=== PATIENT | male | born 1985 | race African-American/Black ===

== ENCOUNTER 2018-04-05 02:35 | Emergency (ER) | payer OTHER | END 2018-04-05 05:45 | disposition home or self-care (01) | LOC: ERS 02:35 | DX: S29.012A Strain of muscle and tendon of back wall of thorax, initial encounter (principal); E86.0 Dehydration; I25.2 Old myocardial infarction; F31.9 Bipolar disorder, unspecified; F20.9 Schizophrenia, unspecified; F17.210 Nicotine dependence, cigarettes, uncomplicated; X58.XXXA Exposure to other specified factors, initial encounter | CPT/HCPCS: 99283 ==

== ENCOUNTER 2018-04-08 02:35 | Emergency (ER) | payer OTHER ==
[2018-04-08] MEDS ORDERED: Ondansetron ODT 4 MG TAB ONE (05:55)
[2018-04-08] MEDS ORDERED: Ketorolac Tromethamine 60 MG/2 ML VIAL ONE (05:55)
== END 2018-04-08 06:57 | disposition home or self-care (01) ==
LOC: ERS 02:35
DX: M54.9 Dorsalgia, unspecified (principal); R11.2 Nausea with vomiting, unspecified; I25.2 Old myocardial infarction; F31.9 Bipolar disorder, unspecified; F20.9 Schizophrenia, unspecified; F17.210 Nicotine dependence, cigarettes, uncomplicated
CPT/HCPCS: 96372; J1885; Q0162

== ENCOUNTER 2018-04-10 20:40 | Emergency (ER) | payer OTHER ==
[2018-04-10 21:18] LABS: #Basophils 0.1 thou/uL (0.0-0.2); #Eosinphils 0.2 thou/uL (0.0-0.7); #Lymphocytes 3.4 thou/uL (1.20-3.40); #Monocytes 0.7 thou/uL (0.11-0.59); %Basophils 0.8 % (0.0-1.0); %Lymphocytes 46.2 % (21.0-51.0); %Monocytes 8.9 % (0.0-10.0); %Neutrophils 41.1 % (42.0-75.0); Hemoglobin 15.6 g/dL (14.0-18.0); Mean Corpuscular HGB CONC 35.9 g/dL (32.0-36.0); Mean Corpuscular Hemoglobin 32.6 pg (27.0-31.0); Mean Corpuscular Volume 90.8 fl (80.0-94.0); Mean Platelet Volume 6.7 fL (7.4-10.4); Platelet Count 245 thou/uL (130-400); RBC Distribution Width 11.4 % (11.5-14.5); White Blood Cell (WBC) Count 7.3 thou/uL (4.8-10.8)
--- NOTE | 2018-04-10 21:24 | RAD ---
PORTABLE CHEST: 04/10/18 HISTORY: Chest pain. COMPARISON: 06/12/17. Lung dixon are clear. Heart and mediastinum appear normal. IMPRESSION: Unremarkable chest. POS: [facility]
[2018-04-10 21:38] LABS: ALT (SGPT) 14 U/L (8-55); AST (SGOT) 23 U/L (5-34); Albumin 4.2 g/dL (3.5-5.0); Alkaline Phosphatase 90 U/L (40-150); Anion Gap 13 mmol/L (10-20); BUN (Urea Nitrogen) 8 mg/dL (8.9-20.6); Bilirubin, Total 0.9 mg/dL (0.2-1.2); Calc. Creatinine Clearance 0 mL/min (70-130); Calcium 9.4 mg/dL (7.8-10.44); Carbon Dioxide 27 mmol/L (22-29); Chloride 104 mmol/L (98-107); Estimated GFR-MDRD 79; Globulin 2.5 g/dL (2.4-3.5); Glucose 82 mg/dL (70-105); Protein, Total 6.7 g/dL (6.0-8.3); Sodium 140 mmol/L (136-145)
[2018-04-10 21:42] LABS: CKMB 0.8 ng/mL (0-6.6); Troponin I Less than 0.010 ng/mL (< 0.028)
[2018-04-10 22:07] LABS: Medtox Reader # READER 1
[2018-04-10 22:11] LABS: Amphetamine Not Detected (NotDetected); Barbiturates Screen Not Detected (NotDetected); Benzodiazepine Screen Not Detected (NotDetected); Cocaine Metabolite Screen Detected (NotDetected); Medtox Control Line Valid? VALID (VALID); Methadone Not Detected (NotDetected); Methamphetamine Not Detected (NotDetected); Opiate Screen Not Detected (NotDetected); Oxycodone Screen Not Detected (NotDetected); Phencyclidine (PCP) Not Detected (NotDetected); THC/Cannabinoid Screen Not Detected (NotDetected); Tricyclic Screen Not Detected (NotDetected)
== END 2018-04-11 00:02 | disposition home or self-care (01) ==
LOC: ERS 20:40
DX: F14.288 Cocaine dependence with other cocaine-induced disorder (principal); R07.9 Chest pain, unspecified; I25.2 Old myocardial infarction; F31.9 Bipolar disorder, unspecified; F17.210 Nicotine dependence, cigarettes, uncomplicated
CPT/HCPCS: 36415; 71045; 80053; 80306; 82553; 84484; 85025; 93005

== ENCOUNTER 2018-04-12 01:37 | Emergency (ER) | payer OTHER ==
[2018-04-12 02:20] LABS: BHCG - Serum Negative; Pregs Control Background? CLEAR/WHITE (CLR/WHITE); Pregs Control Bar Appear? YES (CONTROL BAR)
[2018-04-12 02:41] LABS: ALT (SGPT) 16 U/L (8-55); AST (SGOT) 28 U/L (5-34); Albumin 3.7 g/dL (3.5-5.0); Alkaline Phosphatase 80 U/L (40-150); Anion Gap 12 mmol/L (10-20); BUN (Urea Nitrogen) 11 mg/dL (8.9-20.6); Bilirubin, Total 0.6 mg/dL (0.2-1.2); Calc. Creatinine Clearance 0 mL/min (70-130); Calcium 8.6 mg/dL (7.8-10.44); Carbon Dioxide 23 mmol/L (22-29); Chloride 106 mmol/L (98-107); Estimated GFR-MDRD Greater than 90; Globulin 2.4 g/dL (2.4-3.5); Glucose 88 mg/dL (70-105); Lipase 29 U/L (8-78); Potassium 3.8 mmol/L (3.5-5.1); Protein, Total 6.1 g/dL (6.0-8.3); Sodium 137 mmol/L (136-145)
[2018-04-12 02:45] LABS: Bilirubin Small (Negative); Blood, Urine Negative (Negative); Clarity CLEAR (Clear); Glucose, Urine (Dipstick) Negative (Negative); Leukocyte Negative (Negative); Nitrite Negative (Negative); Protein, Urine (Dipstick) Trace mg/dL (Neg-Trace); Specific Gravity, Urine 1.036 (1.002-1.036)
[2018-04-12 02:56] LABS: #Eosinphils 0.3 thou/uL (0.0-0.7); #Lymphocytes 2.9 thou/uL (1.20-3.40); #Monocytes 0.5 thou/uL (0.11-0.59); #Neutrophils 3.2 thou/uL (1.40-6.50); %Basophils 0.7 % (0.0-1.0); %Eosinophils 4.6 % (0.0-10.0); %Lymphocytes 41.5 % (21.0-51.0); %Monocytes 7.5 % (0.0-10.0); %Neutrophils 45.8 % (42.0-75.0); Hemoglobin 14.3 g/dL (14.0-18.0); Mean Corpuscular HGB CONC 35.9 g/dL (32.0-36.0); Mean Corpuscular Hemoglobin 32.5 pg (27.0-31.0); Mean Corpuscular Volume 90.6 fl (80.0-94.0); Mean Platelet Volume 6.9 fL (7.4-10.4); Platelet Count 217 thou/uL (130-400); RBC Distribution Width 11.4 % (11.5-14.5); Red Blood Cell (RBC) Count 4.39 mill/uL (4.70-6.10)
[2018-04-12] MEDS ORDERED: Ketorolac Tromethamine 60 MG/2 ML VIAL ONE (03:03)
== END 2018-04-12 03:45 | disposition home or self-care (01) ==
LOC: ERS 01:37
DX: R51 Headache (principal); I25.2 Old myocardial infarction; F17.210 Nicotine dependence, cigarettes, uncomplicated; F31.9 Bipolar disorder, unspecified; F20.9 Schizophrenia, unspecified
CPT/HCPCS: 36415; 80053; 81003; 83690; 84703; 85025; 87086; 96372; J1885

== ENCOUNTER 2018-04-19 00:21 | Emergency (ER) | payer OTHER | END 2018-04-19 01:40 | disposition home or self-care (01) | LOC: ERS 00:21 | DX: M79.1 Myalgia (principal); E86.0 Dehydration; I25.2 Old myocardial infarction; F17.210 Nicotine dependence, cigarettes, uncomplicated; F31.9 Bipolar disorder, unspecified; F20.9 Schizophrenia, unspecified | CPT/HCPCS: 99283 ==

== ENCOUNTER 2018-04-23 16:19 | Emergency (ER) | payer OTHER ==
[2018-04-23 17:46] LABS: Hemoglobin 16.4 g/dL (14.0-18.0); Mean Corpuscular HGB CONC 36.2 g/dL (32.0-36.0); Mean Corpuscular Hemoglobin 32.2 pg (27.0-31.0); Mean Platelet Volume 6.2 fL (7.4-10.4); Platelet Count 277 thou/uL (130-400); RBC Distribution Width 11.6 % (11.5-14.5); Red Blood Cell (RBC) Count 5.09 mill/uL (4.70-6.10); White Blood Cell (WBC) Count 5.7 thou/uL (4.8-10.8)
[2018-04-23 17:55] LABS: ALT (SGPT) 14 U/L (8-55); AST (SGOT) 26 U/L (5-34); Albumin 4.6 g/dL (3.5-5.0); Alkaline Phosphatase 98 U/L (40-150); Anion Gap 11 mmol/L (10-20); BUN (Urea Nitrogen) 11 mg/dL (8.9-20.6); Bilirubin, Total 0.7 mg/dL (0.2-1.2); Calc. Creatinine Clearance 0 mL/min (70-130); Calcium 9.6 mg/dL (7.8-10.44); Carbon Dioxide 27 mmol/L (22-29); Chloride 103 mmol/L (98-107); Estimated GFR-MDRD Greater than 90; Globulin 3.6 g/dL (2.4-3.5); Glucose 97 mg/dL (70-105); Potassium 4.4 mmol/L (3.5-5.1); Protein, Total 8.2 g/dL (6.0-8.3); Sodium 137 mmol/L (136-145)
[2018-04-23] MEDS ORDERED: Ondansetron ODT 4 MG TAB ONE (17:56)
[2018-04-23 18:08] LABS: Band 1 % (5-11); Eosinophils 2 % (0-10); Lymphocytes 24 % (21-51); MDiff Complete? YES; Monocytes 5 % (0-10); Neutrophil 60 % (42-75); PLT Morphology Comment Appears Adequate; Reactive Lymphocytes 7 % (0-10); Target Cells SLIGHT = 2-5 cells (100X) (0-1/hpf)
[2018-04-23 18:24] LABS: Bilirubin Small (Negative); Blood, Urine Negative (Negative); Clarity CLEAR (Clear); Glucose, Urine (Dipstick) Negative (Negative); Leukocyte Trace (Negative); Nitrite Negative (Negative); Protein, Urine (Dipstick) Negative (Neg-Trace); Specific Gravity, Urine 1.028 (1.002-1.036)
[2018-04-23 18:27] LABS: Bacteria/HPF None Seen HPF (None Seen); Hyaline Casts/LPF 0-3 HYALINE CAST LPF (0-3 Hyaline); RBC/HPF 0-3 HPF (0-3); Squamous Epithelial None Seen HPF (0-3); WBC/HPF None Seen HPF (0-3)
== END 2018-04-23 20:18 | disposition home or self-care (01) ==
LOC: ERS 16:19
DX: M79.1 Myalgia (principal); I25.2 Old myocardial infarction; F31.9 Bipolar disorder, unspecified; F20.9 Schizophrenia, unspecified; Z71.6 Tobacco abuse counseling; F17.210 Nicotine dependence, cigarettes, uncomplicated
CPT/HCPCS: 36415; 80053; 81003; 81015; 82550; 85025; 96360; 99406; Q0162

== ENCOUNTER 2018-04-28 22:43 | Emergency (ER) | payer OTHER ==
[2018-04-28 23:11] LABS: Bilirubin Small (Negative); Blood, Urine Negative (Negative); Clarity CLEAR (Clear); Glucose, Urine (Dipstick) Negative (Negative); Leukocyte Negative (Negative); Nitrite Negative (Negative); Protein, Urine (Dipstick) Negative (Neg-Trace); Specific Gravity, Urine 1.034 (1.002-1.036); pH, Urine 5.5 (5.0-9.0)
[2018-04-28 23:44] LABS: ALT (SGPT) 13 U/L (8-55); AST (SGOT) 23 U/L (5-34); Alkaline Phosphatase 87 U/L (40-150); Anion Gap 9 mmol/L (10-20); BUN (Urea Nitrogen) 10 mg/dL (8.9-20.6); Bilirubin, Total 0.5 mg/dL (0.2-1.2); Calc. Creatinine Clearance 0 mL/min (70-130); Calcium 9.1 mg/dL (7.8-10.44); Carbon Dioxide 26 mmol/L (22-29); Chloride 108 mmol/L (98-107); Estimated GFR-MDRD Greater than 90; Glucose 93 mg/dL (70-105); Potassium 4.1 mmol/L (3.5-5.1); Sodium 139 mmol/L (136-145)
[2018-04-28 23:50] LABS: Eosinophils 6 % (0-10); Hemoglobin 15.9 g/dL (14.0-18.0); Lymphocytes 42 % (21-51); MDiff Complete? YES; Mean Corpuscular HGB CONC 35.2 g/dL (32.0-36.0); Mean Corpuscular Hemoglobin 32.1 pg (27.0-31.0); Mean Corpuscular Volume 91.1 fL (78.0-98.0); Mean Platelet Volume 6.7 fL (7.4-10.4); Monocytes 10 % (0-10); Neutrophil 42 % (42-75); PLT Morphology Comment Appears Adequate; Platelet Count 241 thou/uL (130-400); RBC Distribution Width 11.7 % (11.5-14.5); Red Blood Cell (RBC) Count 4.96 mill/uL (4.70-6.10); White Blood Cell (WBC) Count 6.3 thou/uL (4.8-10.8)
[2018-04-29 02:13] LABS: Acetaminophen Less than 6.0 mcg/mL (10.0-30.0); Alcohol Less than 10 mg/dL (Less than 10); Salicylate Less than 8.0 mg/dL (15.0-30.0)
[2018-04-29 02:34] LABS: Amphetamine Not Detected (NotDetected); Barbiturates Screen Not Detected (NotDetected); Benzodiazepine Screen Not Detected (NotDetected); Cocaine Metabolite Screen Detected (NotDetected); Medtox Control Line Valid? VALID (VALID); Medtox Reader # READER 1; Methadone Not Detected (NotDetected); Methamphetamine Not Detected (NotDetected); Opiate Screen Not Detected (NotDetected); Oxycodone Screen Not Detected (NotDetected); Phencyclidine (PCP) Not Detected (NotDetected); THC/Cannabinoid Screen Not Detected (NotDetected); Tricyclic Screen Not Detected (NotDetected)
== END 2018-04-28 23:59 | disposition home or self-care (01) ==
LOC: ERS 22:43
DX: F23 Brief psychotic disorder (principal); F31.9 Bipolar disorder, unspecified; F17.210 Nicotine dependence, cigarettes, uncomplicated; I10 Essential (primary) hypertension; I25.2 Old myocardial infarction; Z71.6 Tobacco abuse counseling
CPT/HCPCS: 36415; 80053; 80306; 80307; 81003; 83690; 85025; 99406

== ENCOUNTER 2018-04-29 21:27 | Emergency (ER) | payer OTHER | END 2018-04-29 21:55 | disposition home or self-care (01) | LOC: ERS 21:27 | DX: M79.1 Myalgia (principal); F31.9 Bipolar disorder, unspecified; F20.9 Schizophrenia, unspecified; F17.210 Nicotine dependence, cigarettes, uncomplicated | CPT/HCPCS: 99283 ==

== ENCOUNTER 2018-05-06 02:58 | Emergency (ER) | payer OTHER ==
[2018-05-06] MEDS ORDERED: Metoclopramide HCl 10 MG/2 ML VIAL ONE (03:56)
[2018-05-06] MEDS ORDERED: Ketorolac Tromethamine 30 MG/ML VIAL ONE (03:56)
== END 2018-05-06 05:14 | disposition home or self-care (01) ==
LOC: ERS 02:58
DX: R51 Headache (principal); F17.210 Nicotine dependence, cigarettes, uncomplicated; F31.9 Bipolar disorder, unspecified; F20.9 Schizophrenia, unspecified
CPT/HCPCS: 96361; 96374; 96375; J1885; J2765

== ENCOUNTER 2018-05-09 02:34 | Emergency (ER) | payer OTHER | END 2018-05-09 03:19 | disposition home or self-care (01) | LOC: ERS 02:34 | DX: G44.209 Tension-type headache, unspecified, not intractable (principal); I10 Essential (primary) hypertension; F41.9 Anxiety disorder, unspecified; F31.9 Bipolar disorder, unspecified | CPT/HCPCS: 99281 ==

== ENCOUNTER 2018-05-11 22:00 | Emergency (ER) | payer OTHER ==
[2018-05-12] MEDS ORDERED: Ketorolac Tromethamine 60 MG/2 ML VIAL ONE (00:18)
== END 2018-05-12 00:50 | disposition home or self-care (01) ==
LOC: ERS 22:00
DX: R51 Headache (principal); I10 Essential (primary) hypertension; F31.9 Bipolar disorder, unspecified; F41.9 Anxiety disorder, unspecified; F17.210 Nicotine dependence, cigarettes, uncomplicated
CPT/HCPCS: 96372; J1885

== ENCOUNTER 2018-05-28 03:04 | Emergency (ER) | payer OTHER | END 2018-05-28 04:53 | disposition home or self-care (01) | LOC: ERS 03:04 | DX: G43.909 Migraine, unspecified, not intractable, without status migrainosus (principal); F31.9 Bipolar disorder, unspecified; F41.9 Anxiety disorder, unspecified; F17.210 Nicotine dependence, cigarettes, uncomplicated; I10 Essential (primary) hypertension | CPT/HCPCS: 99283 ==

== ENCOUNTER 2018-06-01 03:13 | Emergency (ER) | payer OTHER | END 2018-06-01 03:48 | disposition home or self-care (01) | LOC: ERS 03:13 | DX: Z00.00 Encounter for general adult medical examination without abnormal findings (principal) | CPT/HCPCS: 99283 ==

== ENCOUNTER 2018-06-09 04:53 | Emergency (ER) | payer OTHER ==
[2018-06-09] MEDS ORDERED: diphenhydrAMINE 25 MG CAP ONE (05:29)
[2018-06-09] MEDS ORDERED: Haloperidol Lactate 5 MG/ML VIAL ONE (05:29)
== END 2018-06-09 06:15 | disposition home or self-care (01) ==
LOC: ERS 04:53
DX: R51 Headache (principal); R10.9 Unspecified abdominal pain; I10 Essential (primary) hypertension; F31.9 Bipolar disorder, unspecified; F17.210 Nicotine dependence, cigarettes, uncomplicated; F41.9 Anxiety disorder, unspecified
CPT/HCPCS: 96372; J1630

== ENCOUNTER 2019-03-29 17:12 | Emergency (ER) | payer OTHER | END 2019-03-29 17:58 | disposition home or self-care (01) | LOC: ERS 17:12 | DX: T67.5XXA Heat exhaustion, unspecified, initial encounter (principal); R11.2 Nausea with vomiting, unspecified; I10 Essential (primary) hypertension; F41.9 Anxiety disorder, unspecified; F31.9 Bipolar disorder, unspecified; F17.210 Nicotine dependence, cigarettes, uncomplicated | CPT/HCPCS: 99284 ==

== ENCOUNTER 2019-04-01 04:06 | Emergency (ER) | payer OTHER | END 2019-04-01 04:35 | disposition home or self-care (01) | LOC: ERS 04:06 | DX: M54.5 Low back pain (principal); F41.9 Anxiety disorder, unspecified; F31.9 Bipolar disorder, unspecified; F17.210 Nicotine dependence, cigarettes, uncomplicated | CPT/HCPCS: 93005 ==

== ENCOUNTER 2019-04-02 00:45 | Emergency (ER) | payer OTHER ==
[2019-04-02 02:38] LABS: #Basophils 0.1 thou/uL (0.0-0.2); #Eosinphils 0.4 thou/uL (0.0-0.7); #Lymphocytes 2.4 thou/uL (1.20-3.40); #Monocytes 0.8 thou/uL (0.11-0.59); #Neutrophils 3.2 thou/uL (1.40-6.50); %Eosinophils 5.1 % (0.0-10.0); %Lymphocytes 35.2 % (21.0-51.0); %Monocytes 11.3 % (0.0-10.0); %Neutrophils 46.4 % (42.0-75.0); Hemoglobin 14.8 g/dL (14.0-18.0); Mean Corpuscular HGB CONC 35.4 g/dL (32.0-36.0); Mean Corpuscular Hemoglobin 31.6 pg (27.0-31.0); Mean Corpuscular Volume 89.2 fL (78.0-98.0); Mean Platelet Volume 6.2 fL (7.4-10.4); Platelet Count 248 thou/uL (130-400); RBC Distribution Width 11.7 % (11.5-14.5); White Blood Cell (WBC) Count 6.9 thou/uL (4.8-10.8)
[2019-04-02 02:56] LABS: ALT (SGPT) 14 U/L (8-55); AST (SGOT) 26 U/L (5-34); Albumin 4.1 g/dL (3.5-5.0); Alkaline Phosphatase 65 U/L (40-150); Anion Gap 11 mmol/L (10-20); BUN (Urea Nitrogen) 12 mg/dL (8.9-20.6); Bilirubin, Total 0.4 mg/dL (0.2-1.2); CK (CPK) 658 U/L (30-200); Calc. Creatinine Clearance 0 mL/min (70-130); Calcium 9.3 mg/dL (7.8-10.44); Carbon Dioxide 27 mmol/L (22-29); Chloride 103 mmol/L (98-107); Estimated GFR-MDRD Greater than 90; Globulin 2.7 g/dL (2.4-3.5); Glucose 75 mg/dL (70-105); Potassium 4.5 mmol/L (3.5-5.1); Protein, Total 6.8 g/dL (6.0-8.3); Sodium 136 mmol/L (136-145)
[2019-04-02 03:07] LABS: Bilirubin Negative (Negative); Blood, Urine Negative (Negative); Clarity CLEAR (Clear); Glucose, Urine (Dipstick) Negative (Negative); Leukocyte Negative (Negative); Nitrite Negative (Negative); Protein, Urine (Dipstick) Negative (Neg-Trace); Specific Gravity, Urine 1.023 (1.002-1.036); pH, Urine 5.5 (5.0-9.0)
== END 2019-04-02 03:32 | disposition home or self-care (01) ==
LOC: ERS 00:45
DX: E86.0 Dehydration (principal); F41.9 Anxiety disorder, unspecified; F31.9 Bipolar disorder, unspecified; F17.210 Nicotine dependence, cigarettes, uncomplicated
CPT/HCPCS: 36415; 80053; 81003; 82550; 85025; 99283

== ENCOUNTER 2019-04-05 04:49 | Emergency (ER) | payer OTHER | END 2019-04-05 05:30 | disposition home or self-care (01) | LOC: ERS 04:49 | DX: Z76.5 Malingerer [conscious simulation] (principal); I10 Essential (primary) hypertension; F17.210 Nicotine dependence, cigarettes, uncomplicated | CPT/HCPCS: 99281 ==

== ENCOUNTER 2019-04-14 23:37 | Emergency (ER) | payer OTHER | END 2019-04-15 01:28 | disposition home or self-care (01) | LOC: ERS 23:37 | DX: M54.5 Low back pain (principal); I10 Essential (primary) hypertension; F41.9 Anxiety disorder, unspecified; F31.9 Bipolar disorder, unspecified; F17.210 Nicotine dependence, cigarettes, uncomplicated | CPT/HCPCS: 99281 ==

== ENCOUNTER 2019-04-24 17:49 | Emergency (ER) | payer OTHER ==
[2019-04-24 18:36] LABS: #Basophils 0.1 thou/uL (0.0-0.2); #Eosinphils 0.5 thou/uL (0.0-0.7); #Lymphocytes 2.9 thou/uL (1.20-3.40); #Monocytes 0.8 thou/uL (0.11-0.59); #Neutrophils 4.1 thou/uL (1.40-6.50); %Basophils 1.5 % (0.0-1.0); %Eosinophils 5.6 % (0.0-10.0); %Lymphocytes 34.9 % (21.0-51.0); %Neutrophils 49.1 % (42.0-75.0); Hemoglobin 15.1 g/dL (14.0-18.0); Mean Corpuscular HGB CONC 35.5 g/dL (32.0-36.0); Mean Corpuscular Hemoglobin 31.3 pg (27.0-31.0); Mean Corpuscular Volume 88.1 fL (78.0-98.0); Mean Platelet Volume 6.4 fL (7.4-10.4); Platelet Count 274 thou/uL (130-400); RBC Distribution Width 11.8 % (11.5-14.5); Red Blood Cell (RBC) Count 4.83 mill/uL (4.70-6.10); White Blood Cell (WBC) Count 8.4 thou/uL (4.8-10.8)
[2019-04-24 18:54] LABS: ALT (SGPT) 16 U/L (8-55); AST (SGOT) 28 U/L (5-34); Albumin 4.3 g/dL (3.5-5.0); Alkaline Phosphatase 86 U/L (40-150); Anion Gap 14 mmol/L (10-20); BUN (Urea Nitrogen) 14 mg/dL (8.9-20.6); Bilirubin, Total 0.4 mg/dL (0.2-1.2); CK (CPK) 731 U/L (30-200); Calc. Creatinine Clearance 0 mL/min (70-130); Calcium 9.1 mg/dL (7.8-10.44); Carbon Dioxide 24 mmol/L (22-29); Chloride 101 mmol/L (98-107); Estimated GFR-MDRD 64; Globulin 3.1 g/dL (2.4-3.5); Glucose 97 mg/dL (70-105); Potassium 4.1 mmol/L (3.5-5.1); Protein, Total 7.4 g/dL (6.0-8.3); Sodium 135 mmol/L (136-145)
[2019-04-24 19:32] LABS: Bilirubin Negative (Negative); Blood, Urine Negative (Negative); Clarity CLEAR (Clear); Glucose, Urine (Dipstick) Negative (Negative); Leukocyte Negative (Negative); Nitrite Negative (Negative); Protein, Urine (Dipstick) Negative (Neg-Trace)
[2019-04-24 19:58] LABS: Acetaminophen Less than 6.0 mcg/mL (10.0-30.0); Alcohol Less than 10 mg/dL (Less than 10); Salicylate Less than 8.0 mg/dL (15.0-30.0)
[2019-04-24 21:59] LABS: Amphetamine Not Detected (NotDetected); Barbiturates Screen Not Detected (NotDetected); Benzodiazepine Screen Not Detected (NotDetected); Cocaine Metabolite Screen Not Detected (NotDetected); Medtox Control Line Valid? VALID (VALID); Medtox Reader # READER 1; Methadone Not Detected (NotDetected); Methamphetamine Not Detected (NotDetected); Opiate Screen Not Detected (NotDetected); Oxycodone Screen Not Detected (NotDetected); Phencyclidine (PCP) Not Detected (NotDetected); THC/Cannabinoid Screen Not Detected (NotDetected); Tricyclic Screen Not Detected (NotDetected)
== END 2019-04-24 23:49 | disposition home or self-care (01) ==
LOC: ERS 17:49
DX: F20.9 Schizophrenia, unspecified (principal); E86.0 Dehydration; I10 Essential (primary) hypertension; F41.9 Anxiety disorder, unspecified; F31.9 Bipolar disorder, unspecified; F17.210 Nicotine dependence, cigarettes, uncomplicated
CPT/HCPCS: 80053; 80306; 80307; 81003; 82550; 84443; 85025; 93005; 94760; 96360

== ENCOUNTER 2019-11-20 03:28 | Emergency (ER) | payer OTHER | END 2019-11-20 03:50 | disposition home or self-care (01) | LOC: ERS 03:28 | DX: R11.10 Vomiting, unspecified (principal); I10 Essential (primary) hypertension; F31.9 Bipolar disorder, unspecified; F17.210 Nicotine dependence, cigarettes, uncomplicated | CPT/HCPCS: 99283 ==

== ENCOUNTER 2019-11-22 06:42 | Emergency (ER) | payer OTHER | END 2019-11-22 09:02 | disposition home or self-care (01) | LOC: ERS 06:42 | DX: R10.9 Unspecified abdominal pain (principal); F41.9 Anxiety disorder, unspecified; F32.9 Major depressive disorder, single episode, unspecified; I10 Essential (primary) hypertension; F17.210 Nicotine dependence, cigarettes, uncomplicated | CPT/HCPCS: 93005 ==

== ENCOUNTER 2019-11-24 04:17 | Emergency (ER) | payer OTHER | END 2019-11-24 04:35 | disposition home or self-care (01) | LOC: ERS 04:17 | DX: M54.9 Dorsalgia, unspecified (principal); G89.29 Other chronic pain; I10 Essential (primary) hypertension; F31.9 Bipolar disorder, unspecified; F20.9 Schizophrenia, unspecified; F17.210 Nicotine dependence, cigarettes, uncomplicated; Z71.6 Tobacco abuse counseling | CPT/HCPCS: 99406 ==

== ENCOUNTER 2019-12-10 04:27 | Emergency (ER) | payer OTHER ==
[2019-12-10] MEDS ORDERED: Ondansetron ODT 8 MG TAB ONE (04:52)
== END 2019-12-10 04:56 | disposition home or self-care (01) ==
LOC: ERS 04:27
DX: R11.2 Nausea with vomiting, unspecified (principal); I10 Essential (primary) hypertension; F31.9 Bipolar disorder, unspecified; F20.9 Schizophrenia, unspecified; F17.210 Nicotine dependence, cigarettes, uncomplicated
CPT/HCPCS: 99283

== ENCOUNTER 2019-12-12 01:47 | Emergency (ER) | payer OTHER | END 2019-12-12 02:00 | disposition home or self-care (01) | LOC: ERS 01:47 | DX: R11.0 Nausea (principal); I10 Essential (primary) hypertension; F31.9 Bipolar disorder, unspecified; F20.9 Schizophrenia, unspecified; F17.210 Nicotine dependence, cigarettes, uncomplicated | CPT/HCPCS: 99281 ==

== ENCOUNTER 2020-04-30 16:29 | Emergency (ER) | payer OTHER ==
[2020-05-01 12:09] LABS: SARS-CoV-2 MS2 Positive; SARS-CoV-2 N Gene Negative; SARS-CoV-2 S Gene Negative; SARS-CoV-2 orf1ab Negative
== END 2020-04-30 16:47 | disposition home or self-care (01) ==
LOC: ERS 16:29
DX: R50.9 Fever, unspecified (principal); R11.2 Nausea with vomiting, unspecified; I10 Essential (primary) hypertension; F31.9 Bipolar disorder, unspecified; F20.9 Schizophrenia, unspecified; F17.210 Nicotine dependence, cigarettes, uncomplicated; Z20.828 Contact with and (suspected) exposure to other viral communicable diseases
CPT/HCPCS: 87635; U0003

== ENCOUNTER 2020-10-14 01:04 | Emergency (ER) | payer OTHER | END 2020-10-14 01:26 | disposition home or self-care (01) | LOC: ERS 01:04 | DX: M54.5 Low back pain (principal); I10 Essential (primary) hypertension; F17.210 Nicotine dependence, cigarettes, uncomplicated | CPT/HCPCS: 99281 ==

== ENCOUNTER 2020-10-27 06:27 | Emergency (ER) | payer OTHER ==
[2020-10-27] MEDS ORDERED: Ondansetron ODT 4 MG TAB ONE (06:40)
== END 2020-10-27 07:25 | disposition home or self-care (01) ==
LOC: ERS 06:27
DX: T68.XXXA Hypothermia, initial encounter (principal); R11.2 Nausea with vomiting, unspecified; I10 Essential (primary) hypertension; F17.210 Nicotine dependence, cigarettes, uncomplicated
CPT/HCPCS: 99283; Q0162

== ENCOUNTER 2020-12-08 19:04 | Emergency (ER) | payer OTHER ==
[2020-12-08] MEDS ORDERED: hydrOXYzine 25 MG TAB ONE (19:35)
== END 2020-12-09 00:23 | disposition home or self-care (01) ==
LOC: ERS 19:04
DX: F10.129 Alcohol abuse with intoxication, unspecified (principal); L29.9 Pruritus, unspecified; I10 Essential (primary) hypertension; F17.210 Nicotine dependence, cigarettes, uncomplicated
CPT/HCPCS: 99281

== ENCOUNTER 2020-12-11 21:42 | Emergency (ER) | payer OTHER | END 2020-12-11 23:38 | disposition home or self-care (01) | LOC: ERS 21:42 | DX: M54.9 Dorsalgia, unspecified (principal); I10 Essential (primary) hypertension; F17.210 Nicotine dependence, cigarettes, uncomplicated | CPT/HCPCS: 99281 ==

== ENCOUNTER 2020-12-30 18:20 | Inpatient (IN) | payer OTHER ==
[2020-12-30] MEDS ORDERED: Lorazepam 2 MG/ML VIAL ONE (18:31)
[2020-12-30 19:02] LABS: Bilirubin Negative (Negative); Blood, Urine Negative (Negative); Clarity Clear (Clear); Glucose, Urine (Dipstick) Normal (Negative); Ketone, Urine Negative (Negative); Leukocyte Negative Leu/uL (Negative); Nitrite Negative (Negative); Protein, Urine (Dipstick) Negative (Neg-Trace); Specific Gravity, Urine 1.007 (1.002-1.036); Urobilinogen Normal mg/dL (Less than 2); pH, Urine 5.5 (5.0-9.0)
[2020-12-30 19:05] LABS: #Basophils 0.1 thou/uL (0.0-0.2); #Eosinphils 0.2 thou/uL (0.0-0.7); #Monocytes 0.7 thou/uL (0.11-0.59); #Neutrophils 4.1 thou/uL (1.40-6.50); %Basophils 1.1 % (0.0-1.0); %Eosinophils 2.8 % (0.0-10.0); %Lymphocytes 37.5 % (21.0-51.0); %Monocytes 8.2 % (0.0-10.0); %Neutrophils 50.5 % (42.0-75.0); Hemoglobin 14.1 g/dL (14.0-18.0); Mean Corpuscular HGB CONC 35.5 g/dL (32.0-36.0); Mean Corpuscular Hemoglobin 31.6 pg (27.0-31.0); Mean Corpuscular Volume 88.9 fL (78.0-98.0); Platelet Count 454 thou/uL (130-400); RBC Distribution Width 12.1 % (11.5-14.5); Red Blood Cell (RBC) Count 4.45 mill/uL (4.70-6.10); White Blood Cell (WBC) Count 8.1 thou/uL (4.8-10.8)
[2020-12-30 19:13] LABS: Amphetamine Not Detected (NotDetected); Barbiturates Screen Not Detected (NotDetected); Benzodiazepine Screen Not Detected (NotDetected); Cocaine Metabolite Screen Not Detected (NotDetected); Medtox Control Line Valid? VALID (VALID); Medtox Reader # READER 4; Methadone Not Detected (NotDetected); Methamphetamine Not Detected (NotDetected); Opiate Screen Not Detected (NotDetected); Oxycodone Screen Not Detected (NotDetected); Phencyclidine (PCP) Not Detected (NotDetected); THC/Cannabinoid Screen Not Detected (NotDetected); Tricyclic Screen Not Detected (NotDetected)
[2020-12-30 19:28] LABS: ALT (SGPT) 14 U/L (8-55); AST (SGOT) 22 U/L (5-34); Acetaminophen Less than 6.0 mcg/mL (10.0-30.0); Albumin 3.8 g/dL (3.5-5.0); Alcohol 260 mg/dL (Less than 10); Alkaline Phosphatase 82 U/L (40-110); Anion Gap 17 mmol/L (10-20); BUN (Urea Nitrogen) 11 mg/dL (8.9-20.6); Bilirubin, Total 0.2 mg/dL (0.2-1.2); CK (CPK) 296 U/L (30-200); Calc. Creatinine Clearance 0 mL/min (70-130); Calcium 8.9 mg/dL (7.8-10.44); Carbon Dioxide 23 mmol/L (22-29); Chloride 105 mmol/L (98-107); Globulin 3.5 g/dL (2.4-3.5); Glucose 98 mg/dL (70-105); Potassium 3.8 mmol/L (3.5-5.1); Protein, Total 7.3 g/dL (6.0-8.3); Salicylate Less than 8.0 mg/dL (15.0-30.0); Sodium 141 mmol/L (136-145)
[2020-12-30] MEDS ORDERED: Lorazepam 2 MG/ML VIAL SLOW IVP PRN (20:35)
[2020-12-30] MEDS: Sodium Chloride 0.9% 1,000 ML IV SCH (21:20)
[2020-12-30 21:45] VITALS: BMI 24.3
[2020-12-30] MEDS: Piperacillin/Tazobactam 4.5 GM in Sodium Chloride 0.9% 100 ML IVPB SCH (23:24)
[2020-12-31 02:23] LABS: SARS-CoV-2 PCR by NAA Not Detected (NotDetected)
[2020-12-31] MEDS: Sodium Chloride 0.9% 1,000 ML IV SCH (02:32)
[2020-12-31 06:14] LABS: #Basophils 0.1 thou/uL (0.0-0.2); #Eosinphils 0.3 thou/uL (0.0-0.7); #Lymphocytes 1.7 thou/uL (1.20-3.40); #Monocytes 0.3 thou/uL (0.11-0.59); %Eosinophils 5.9 % (0.0-10.0); %Lymphocytes 31.7 % (21.0-51.0); %Monocytes 6.2 % (0.0-10.0); %Neutrophils 55.2 % (42.0-75.0); Hemoglobin 14.7 g/dL (14.0-18.0); Mean Corpuscular HGB CONC 35.6 g/dL (32.0-36.0); Mean Corpuscular Hemoglobin 31.7 pg (27.0-31.0); Mean Platelet Volume 5.9 fL (7.4-10.4); Platelet Count 448 thou/uL (130-400); RBC Distribution Width 12.2 % (11.5-14.5); Red Blood Cell (RBC) Count 4.65 mill/uL (4.70-6.10); White Blood Cell (WBC) Count 5.4 thou/uL (4.8-10.8)
[2020-12-31 06:34] LABS: Anion Gap 15 mmol/L (10-20); BUN (Urea Nitrogen) 11 mg/dL (8.9-20.6); Calc. Creatinine Clearance 127 mL/min (70-130); Calcium 8.8 mg/dL (7.8-10.44); Carbon Dioxide 24 mmol/L (22-29); Chloride 106 mmol/L (98-107); Glucose 63 mg/dL (70-105); Potassium 4.2 mmol/L (3.5-5.1); Sodium 141 mmol/L (136-145)
[2020-12-31] MEDS: Piperacillin/Tazobactam 4.5 GM in Sodium Chloride 0.9% 100 ML IVPB SCH (08:14)
[2020-12-31] MEDS ORDERED: FLU VACC QS2020-21(6MOS UP)/PF 60 MCG/0.5 ML SYRINGE IM ONE (09:00)
[2020-12-31] MEDS ORDERED: Lorazepam 2 MG/ML VIAL SLOW IVP PRN (11:32)
[2020-12-31] MEDS: Multivitamins, Adult 10 ML, Folic Acid 1 MG, Thiamine HCl 100 MG in Dextrose 5 %-0.45 %... IV SCH (12:48)
[2021-01-01] MEDS: Piperacillin/Tazobactam 3.375 GM in Sodium Chloride 0.9% 100 ML IVPB SCH ×2 (12:30→19:01)
[2021-01-01] MEDS: Multivitamins, Adult 10 ML, Folic Acid 1 MG, Thiamine HCl 100 MG in Dextrose 5 %-0.45 %... IV SCH (15:39)
[2021-01-02] MEDS: Piperacillin/Tazobactam 3.375 GM in Sodium Chloride 0.9% 100 ML IVPB SCH ×3 (00:12→13:57)
[2021-01-02] MEDS: Multivitamins, Adult 10 ML, Folic Acid 1 MG, Thiamine HCl 100 MG in Dextrose 5 %-0.45 %... IV SCH (13:57)
[2021-01-02 15:47] VITALS: BP 125/80; TEMP 98.2
== END 2021-01-02 13:53 | disposition home or self-care (01) | DRG 923 ==
LOC: ERS 18:20 → T4-B 19:41
PROVIDERS: ADMIT Student in an Organized Health Care Education/Training Program; ATTEND Internal Medicine
DX: T33.532A Superficial frostbite of left finger(s), initial encounter (principal); E46 Unspecified protein-calorie malnutrition; I96 Gangrene, not elsewhere classified; F20.9 Schizophrenia, unspecified; T33.531A Superficial frostbite of right finger(s), initial encounter; F10.129 Alcohol abuse with intoxication, unspecified; F31.9 Bipolar disorder, unspecified; F17.210 Nicotine dependence, cigarettes, uncomplicated; I11.0 Hypertensive heart disease with heart failure; I50.9 Heart failure, unspecified; E86.0 Dehydration; Z59.0 Homelessness; L89.892 Pressure ulcer of other site, stage 2; G31.2 Degeneration of nervous system due to alcohol; Z68.24 Body mass index [BMI] 24.0-24.9, adult
CPT/HCPCS: 36415; 80048; 80053; 80306; 80307; 81003; 82550; 83605; 85025; 87635; 90471; 90662; 90732; 96372; 99285; G0008; G0009; J2060; J2543; J3411; J3490; J7042; U0003; U0005

== ENCOUNTER 2021-01-04 05:48 | Emergency (ER) | payer OTHER | END 2021-01-04 06:30 | disposition home or self-care (01) | LOC: ERS 05:48 | DX: T33.531A Superficial frostbite of right finger(s), initial encounter (principal); T33.532A Superficial frostbite of left finger(s), initial encounter; I11.0 Hypertensive heart disease with heart failure; I50.9 Heart failure, unspecified; F17.210 Nicotine dependence, cigarettes, uncomplicated; X31.XXXA Exposure to excessive natural cold, initial encounter | CPT/HCPCS: 99283 ==

== ENCOUNTER 2021-02-09 21:54 | Emergency (ER) | payer OTHER | END 2021-02-09 22:45 | disposition home or self-care (01) | LOC: ERS 21:54 | DX: T34.532 Frostbite with tissue necrosis of left finger(s) (principal); T34.531D Frostbite with tissue necrosis of right finger(s), subsequent encounter; F17.210 Nicotine dependence, cigarettes, uncomplicated; I11.0 Hypertensive heart disease with heart failure; I50.9 Heart failure, unspecified; X31.XXXD Exposure to excessive natural cold, subsequent encounter | CPT/HCPCS: 99281 ==

== ENCOUNTER 2021-11-20 19:31 | Emergency (ER) | payer OTHER | END 2021-11-20 20:15 | disposition home or self-care (01) | LOC: ERS 19:31 | DX: F10.10 Alcohol abuse, uncomplicated (principal); I11.0 Hypertensive heart disease with heart failure; I50.9 Heart failure, unspecified; F17.210 Nicotine dependence, cigarettes, uncomplicated | CPT/HCPCS: 99284 ==

== ENCOUNTER 2022-07-03 22:34 | Emergency (ER) | payer OTHER | END 2022-07-03 23:26 | LOC: ERS 22:34 | DX: F19.90 Other psychoactive substance use, unspecified, uncomplicated (principal); F17.210 Nicotine dependence, cigarettes, uncomplicated; I10 Essential (primary) hypertension | CPT/HCPCS: 36416; 99283 ==

== ENCOUNTER 2022-09-14 19:05 | Emergency (ER) | payer OTHER ==
[2022-09-14] MEDS ORDERED: Ondansetron ODT 4 MG TAB ONE (19:50)
== END 2022-09-14 20:04 ==
LOC: ERS 19:05
DX: R11.2 Nausea with vomiting, unspecified (principal); I10 Essential (primary) hypertension; F17.210 Nicotine dependence, cigarettes, uncomplicated
CPT/HCPCS: 99284; Q0162

== ENCOUNTER 2023-11-09 18:08 | Emergency (ER) | payer OTHER ==
[2023-11-09 19:14] LABS: #Basophils 0.1 thou/uL (0.0-0.2); #Eosinphils 0.1 thou/uL (0.0-0.7); #Monocytes 0.5 thou/uL (0.11-0.59); #Neutrophils 2.6 thou/uL (1.40-6.50); %Basophils 1.2 % (0.0-1.0); %Eosinophils 1.8 % (0.0-10.0); %Monocytes 9.3 % (0.0-10.0); %Neutrophils 51.5 % (42.0-75.0); Hematocrit 43.3 % (42.0-52.0); Hemoglobin 16.1 g/dL (14.0-18.0); Mean Corpuscular HGB CONC 37.2 g/dL (32.0-36.0); Mean Corpuscular Volume 80.6 fl (78.0-98.0); Platelet Count 320 10x3/uL (130-400); RBC Distribution Width 12.6 % (11.5-14.5); Red Blood Cell (RBC) Count 5.37 mill/uL (4.70-6.10)
[2023-11-09 19:39] LABS: ALT (SGPT) 16 U/L (8-55); AST (SGOT) 21 U/L (5-34); Albumin 4.4 g/dL (3.5-5.0); Alkaline Phosphatase 77 U/L (40-110); Anion Gap 13 mmol/L (10-20); BUN (Urea Nitrogen) 14 mg/dL (8.9-20.6); Bilirubin, Total 0.5 mg/dL (0.2-1.2); Calc. Creatinine Clearance 0 mL/min (70-130); Calcium 9.5 mg/dL (7.8-10.44); Carbon Dioxide 24 mmol/L (22-29); Chloride 104 mmol/L (98-107); Estimated GFR 95; Globulin 3.2 g/dL (2.4-3.5); Glucose 81 mg/dL (70-105); Potassium 4.1 mmol/L (3.5-5.1); Protein, Total 7.6 g/dL (6.0-8.3); Sodium 137 mmol/L (136-145)
[2023-11-09 19:40] LABS: Acetaminophen Less than 10 mcg/mL (10.0-30.0); Alcohol Less than 10.0 mg/dL (Less than 10); Lipase 40 U/L (8-78); Salicylate Less than 8.0 mg/dL (15.0-30.0)
[2023-11-09 20:57] LABS: Bacteria/HPF None Seen HPF (None Seen); Bilirubin Negative (Negative); Blood, Urine Negative (Negative); CAUTI Indications for Culture Pelvic or flank pain; Clarity Clear (Clear); Glucose, Urine (Dipstick) Normal (Negative); Ketone, Urine Negative (Negative); Leukocyte Negative Leu/uL (Negative); Nitrite Negative (Negative); Protein, Urine (Dipstick) Negative (Neg-Trace); RBC/HPF None Seen HPF (0-3); Specific Gravity, Urine 1.009 (1.002-1.036); Squamous Epithelial None Seen HPF (0-3); Urobilinogen Normal mg/dL (Less than 2); WBC/HPF None Seen HPF (0-3)
[2023-11-09 21:00] LABS: Urine Culture Reflex No No
[2023-11-09 21:05] LABS: Amphetamine Not Detected (NotDetected); Barbiturates Screen Not Detected (NotDetected); Benzodiazepine Screen Not Detected (NotDetected); Cocaine Metabolite Screen Not Detected (NotDetected); Methadone Not Detected (NotDetected); Methamphetamine Not Detected (NotDetected); Opiate Screen Not Detected (NotDetected); Oxycodone Screen Not Detected (NotDetected); Phencyclidine (PCP) Not Detected (NotDetected); THC/Cannabinoid Screen Not Detected (NotDetected); Tricyclic Screen Not Detected (NotDetected)
== END 2023-11-09 21:36 | disposition home or self-care (01) ==
LOC: ERS 18:08
DX: R10.30 Lower abdominal pain, unspecified (principal)
CPT/HCPCS: 80053; 80306; 80307; 81001; 83690; 85025; 96360; 96361